=== PATIENT | male | born 1975 | race Two or more races ===

== ENCOUNTER 2022-10-20 16:24 | Emergency (ER) | payer MEDICAID, SELFPAY ==
[2022-10-20 16:33] VITALS: BP 123/84; PULSE 95; RESP 10; TEMP 36.7; O2SAT 92; BMI 25.7
--- NOTE | 2022-10-20 16:33 | ED.GENADULT ---
HPI - General Adult General Chief complaint: ETOH/Substance Use Stated complaint: OPIOID USE Time Seen by Provider: 10/20/22 17:02 Source: patient and EMS Mode of arrival: EMS Limitations: no limitations History of Present Illness HPI narrative: 46-year-old male presents with likely overdose. We suspect patient having said he snorted fentanyl. He has been given Narcan. Initially, patient was quite conversant offering no significant complaints. No suicidal homicidal ideation. Subsequently, patient became quite somnolent, respirations dropped to 9, oxygen saturation between 80 90% on room air snoring. History limited to mental status changes. Related Data Allergies Allergy/AdvReac Type Severity Reaction Status Date / Time No Known Allergies Allergy Verified 10/20/22 16:35 Review of Systems Review of Systems: Yes Unobtainable due to mental status Physical Exam ED Vital Signs: Vital Signs - 24 hr 10/20/22 16:33 Temperature 98.0 F Pulse Rate 95 Respiratory Rate 10 L Blood Pressure 123/84 Pulse Oximetry 92 Oxygen Delivery Method Room Air BMI result Body Mass Index 25.7 GEN: Well developed, no acute distress, intermittently alert followed by periods of slowed respirations and hypoxia HEENT: Normocephalic, atraumatic, normal external ears, nose appears normal, no oropharyngeal edema or exudates Eyes: Normal to appearance Neck: Supple, no lymphadenopathy Respiratory: Talks in complete sentences, no respiratory distress, clear to auscultation bilaterally Cardiovascular: Regular rate and rhythm, no murmurs rubs or gallops Abdomen: Soft, nontender, nondistended, no guarding, no rebound Back: No CVA tenderness Extremities: No clubbing cyanosis or edema Neurologic: No focal neurologic deficits Skin: No rash Course Course Course Narrative: This is an RME: Additional HPI, ROS, PE not included below will be deferred to primary provider. This is a 42-it[age]ks-male, with a history of substance abuse, presenting to the emergency department via EMS after snorting fentanyl. Patient with snoring respirations and triage. Patient has pinpoint pupils. Respirations 10rpm. Oxygen saturation 92% on room air. Patient is arousable however will bring patient back to the main emergency department for more observation Plan: Labs, UA Reevaluation(s) Reevaluation #1: patient given Narcn with minimal response. patient transfered to monitored bed. Time: 17:13 Reevaluation #2: Patient is apparent overdose. He will not consent to blood work. Will not give a urine sample he wishes to be discharged at this time. Well aware that his symptoms could recur. We counseled extensively about leaving too early. We will discharge in against medical advice. Time: 18:00 Medications Administered Discontinued Medications Generic Name Dose Route Start Last Admin Trade Name Cecilia PRN Reason Stop Dose Admin Naloxone HCl 4 mg 10/20/22 17:08 10/20/22 17:09 Naloxone Hcl Nasal 4 Mg [place] NOSTRILALT 10/20/22 17:09 4 mg ONCE ONE Administration Critical Care Time Critical Care Time Critical Care Time: Yes Total Critical Care Time: 35 Attestation: Due to a high probability of clinically significant, life threatening deterioration, the patient required my highest level of preparedness to intervene emergently and I personally spent this critical care time directly and personally managing the patient. This critical care time included obtaining a history; examining the patient; pulse oximetry; ordering and review of studies; arranging urgent treatment with development of a management plan; evaluation of patient's response to treatment; frequent reassessment; and, discussions with other providers. This critical care time was performed to assess and manage the high probability of imminent, life-threatening deterioration that could result in multi-organ failure. It was exclusive of separately billable procedures and treating other patients and teaching time. Discharge Plan Discharge Clinical Impression: Overdose Patient Disposition: Left Against Medical Advice Instructions: Naloxone (Into the nose), Adult Overdose (ED) Referrals: [facility] [place] [facility] [Provider Group] Print Language: Bermudian
[2022-10-20] MEDS: Naloxone HCl Nasal 4 MG SPRAY NOSTRILALT (17:09)
--- NOTE | 2022-10-20 18:06 | MHC.RECOVSUP ---
Attempted to meet with pt in ED10 who is here for MER[facility]. At this time pt is uninterested in any recovery supports and wants to DC.
[2022-10-20] MEDS: Naloxone HCl Nasal TAKE HOME 4 MG SPRAY 8 MG NOSTRILALT (18:15)
== END 2022-10-20 18:25 | disposition left against medical advice (07) ==
LOC: HO.ED 18:20
PROVIDERS: Emergency Provider Emergency Medicine
DX: T40.1X1A Poisoning by heroin, accidental (unintentional), initial encounter (principal); Y92.9 Unspecified place or not applicable
CPT/HCPCS: 51701; 99282; 99284

== ENCOUNTER 2022-11-27 09:20 | Emergency (ER) | payer OTHER, SELFPAY ==
[2022-11-27 09:32] VITALS: BP 150/88; PULSE 85; O2SAT 100
[2022-11-27 09:58] VITALS: BP 145/84; PULSE 84; RESP 16; TEMP 36.4; O2SAT 96; BMI 26.9
[2022-11-27 10:40] LABS: Anion Gap 17 (12-20); Blood Urea Nitrogen 8 mg/dL (9-16); Calcium 10.3 mg/dL (8.4-10.2); Carbon Dioxide 23 mmol/L (22-29); Chloride 103 mmol/L (96-108); Creatinine Clr Calc Pharmacy 80.9; Estimated Glomerular Filt Rate > 60; Glucose Random 79 mg/dL (60-115); Potassium 4.5 mmol/L (3.3-5.1); Sodium 138 mmol/L (135-145)
--- NOTE | 2022-11-27 11:44 | ED.WOUNDLAC ---
HPI - Wound/Laceration General Chief Complaint: Wound/Laceration Stated Complaint: L ANKLE WOUND,? 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 Patient reports having this wound for months after waking up with it one day. States that his wound was cured at one point however is unable to tell me where he was treated for this. States that the only medication he currently takes is a nerve pain medication prescribed by his nerve doctor . Does not recall the name of the medication. Denies history of diabetes. Denies IV drug use. Patient is a poor historian. Related Data Allergies Allergy/AdvReac Type Severity Reaction Status Date / Time No Known Allergies Allergy Verified 10/20/22 16:35 Review of Systems Review of Systems: Constitutional: No fever, chills, fatigue, night sweats, weight changes ENT/Mouth: No ear pain, hearing loss, nasal congestion, sinus pain, rhinorrhea, sore throat Eyes: No eye pain, swelling, redness, vision changes, discharge Cardio: No chest pain, palpitations, YO, orthopnea, peripheral edema Pulm: No SOB, cough, sputum, wheezing, dyspnea, hemoptysis GI: No nausea, vomiting, hematemesis, abdominal pain, diarrhea, constipation, hematochezia, melena : No irregular bleeding, dysuria, frequency, urgency, hesitancy, hematuria, flank pain, urinary flow changes, urinary incontinence or retention MSK: No back pain, neck pain, joint pain, myalgias Skin: No lesions, rashes, + Left foot wound Neuro: No weakness, numbness, paresthesias, LOC, dizziness, headache All other systems reviewed and are negative. [facility] Past Medical History Attestation statement: The following information was validated with the patient. Source: old records reviewed and nursing notes reviewed Social History Social History Smoked in Last 30 Days: Yes Use of substances other than those prescribed or required for medical reasons: Refusing to respond Advance Directives: Yes Advance Directives on File: Yes Advance Directives Date on File: 11/27/22 Physical Exam Vital Signs: Vital Signs: Last Vital Signs Temp 98.2 F 11/27/22 14:30 Pulse 76 11/27/22 14:30 Resp 17 11/27/22 14:30 BP 124/69 11/27/22 14:30 Pulse Ox 96 11/27/22 14:30 O2 Del Method Room Air 11/27/22 14:30 BMI result Body Mass Index 26.9 Vital signs stable Const: General: cooperative, no acute distress, alert and awake Orientation/consciousness: patient oriented x3 Limitations: no limitations HEENT: Head: Yes normal to inspection Ears: hearing grossly normal bilaterally General nose exam: Normal external nose present Eyes: General: appearance normal, both eyes and all related structures Pupils: Equal, round and reactive pupils present EOM: EOMs intact bilaterally Neck: Neck: Yes normal visual inspection and Yes no lymphadenopathy Resp: Effort & Inspection: normal respiratory effort Auscultation: clear to auscultation bilaterally Cardio: Rate: regular rate Rhythm: regular rhythm Heart sounds: S1 normal heart sound present and S2 normal heart sound present Peripheral pulses: Peripheral pulses 2+ throughout : General: Yes no CVA tenderness Back/Spine/Pelvis: Back: no CVA tenderness Skin: General skin exam: no rashes or lesions noted Neuro: General: patient oriented x3, gait normal and moves all extremities Cranial nerves: Yes CN's II-XII intact bilaterally and Yes Equal, round and reactive pupils present Extrem: Other: Refer to photos below. + DP/PT pulses 2+ bilaterally. Normal capillary refill b/l. General: Yes full ROM, Yes capillary refill normal, Yes normal gait and No calf tenderness Ankle/foot/toe images: 1. Course Course Course Narrative: 1403-- CBC without leukocytosis or anemia. Chemistry without acute electrolyte abnormalities requiring intervention. CRP/ ESR midly elevated. Awaiting xrays. > Case discussed with my attending physician, Dr. Golden. 4069-- Discussed case with Christiana from who, upon further investigation into the patient's case, discovered that the patient was admitted to [facility] for IV abx 2 mo ago and 1 mo ago, and discharge home with wound care f/u. > patient has longstanding history of schizophrenia (non med compliant), HTN, HDL, hepatitis-C, GERD and IVDU. > patient does not qualify for case management at this time. 1445-- on re-evaluation, patient does not have physical complaints. Discussed unremarkable lab and imaging results. There is no concern for osteomyelitis or any other infection at this time. His presentation is consistent with a chronic left foot ulcer that is currently in the healing stages. I told the patient that he needs to follow-up with outpatient wound care and a referral will be provided to him. He tells me that he does not even know why he came here and expresses frustration that someone called EMS to have him brought here for this. He is requesting that he call his brother to come pick him up. >> at this time patient's vital signs are stable and workup was unremarkable. I feel safe discharging the patient home. Discussed strict return precautions. Patient expresses understanding of disposition. All questions answered at this time. Stable for discharge. Medical Decision Making Medical Decision Making [facility] Narrative: 46 year old Marshallese speaking male with pmhx significant for polysubstance abuse who presents to the ED via EMS from [facility] with chronic wound to his left foot/ heel. VSS, patient is afebrile, normotensive, not tachycardic. He is nontoxic appearing, in NAD. 3cm circular ulceration surrounded by granulation tissue noted to the lateral aspect of the left heel just inferior to the lateral malleolus without surrounding erythema, fluctuance, or warmth. NV intact distally. Ambulating with steady gait. Clinical suspicion for chronic healing ulcer. Low suspicion for osteomyelitis vs gangrene vs necrotizing fasciitis vs arterial occlusion vs threat to limb. Plan at this time is to obtain labs, inflammatory markers, x-ray of the left foot knee ankle. Patient declining pain control at this time. Differential Diagnosis Differential Diagnoses: The differential diagnosis associated with the presentation includes As above. Admission/Observation Not indicated. Lab Data [facility] Lab Attestation statement: I reviewed the patient's lab results. As above. 11/27/22 10:07 11/27/22 10:07 Labs: Lab Results 11/27/22 11/27/22 11/27/22 Range/Units 10:07 12:25 12:26 WBC 10.3 (4.8-10.8) X10*3/uL RBC 5.03 (4.60-5.80) X10*6/uL Hgb 14.9 (14.0-18.0) g/dl Hct 45.5 (42.0-52.0) % MCV 90.5 (80.0-98.0) fL MCH 29.6 (27.0-33.0) pg MCHC 32.7 (31.0-36.0) g/dl RDW 15.2 (11.0-16.0) % Plt Count 245 (160-400) X10*3/uL MPV 9.4 (9.4-12.4) fL Immature Gran % (Auto) 0.3 (0.0-0.4) % Neut % (Auto) 72.0 (45-73) % Lymph % (Auto) 15.3 L (20-40) % [place] % (Auto) 10.0 (2-11) % Eos % (Auto) 1.6 (0-4) % Baso % (Auto) 0.8 (0-2) % Lymph # (Auto) 1.6 (1.2-4.9) X10*3/uL [place] # (Auto) 1.0 (0.1-1.2) X10*3/uL Eos # (Auto) 0.2 (0.0-0.4) X10*3/uL Baso # (Auto) 0.1 (0.0-0.2) X10*3/uL Abs Immat Gran (auto) 0.03 (0.00-0.03) X10*3/uL Absolute Neuts (auto) 7.4 (2.0-8.3) x10*3/uL Absolute Nucleated RBC 0.000 (0.0-0.012) X10*3/uL Nucleated RBC % (auto) 0.0 (0.0-0.2) /100WBC ESR 23 H (0-15) MM/HR Sodium 138 (135-145) mmol/L Potassium 4.5 (3.3-5.1) mmol/L Chloride 103 (96-108) mmol/L Carbon Dioxide 23 (22-29) mmol/L Anion Gap 17 (12-20) BUN 8 L (9-16) mg/dL Creatinine 0.99 (0.5-1.4) mg/dL Estim Creat Clear Calc 80.9 Estimated GFR > 60 Random Glucose 79 (60-115) mg/dL Calcium 10.3 H (8.4-10.2) mg/dL C-Reactive Protein 3.54 H (< or = 0.50) mg/dL Independent Interpretation I performed an independent interpretation of an: Plain X-Ray Interpretation: XR left foot/ ankle Radiology Impression Discussion of test interpretation with radiology: I have reviewed the radiologist's reading. Radiologist Impression: XR foot LT min 3V IMPRESSION: No evidence of osteomyelitis within the ankle or foot. There is a soft tissue wound/ulcer at the lateral hindfoot. Independent Historian Clinical information obtained from an independent historian. History obtained from or confirmed by: Spouse External Record Review External record reviewed: Inpatient record Tests considered The following testing was considered but not selected: I considered obtaining an MRI of the left foot/ ankle however patient's x-rays were negative for osteomyelitis and ESR <30 >> osteo unlikely and MRI not warranted. Prescription Management I considered prescription management with: Pain Medication Chronic Conditions Patient?s care impacted by: Hypertension Social Determinants Patient?s care significantly limited by Social Determinants of Health including: Inadequate housing, Problems related to employment and Other Social Determinant of Health Critical Care Time Critical Care Time Critical Care Time: No Discharge Plan Discharge Clinical Impression: Chronic foot ulcer Patient Disposition: Home, Self-Care Instructions: Chronic Wounds (ED) Additional Instructions: The x-ray of your left foot and ankle did not show evidence of bone infection. You have a healing wound to your left heel. Please follow-up with primary care provider. A referral for the Wound Clinic has been provided to you. You may call them to schedule an appointment for wound care. CALL THEM TO MAKE AN APPOINTMENT. THEY WILL NOT CALL YOU. Return to the emergency department if her symptoms persist or worsen or if you develop a fever over 100.4?. Continue all your home medications as prescribed. In the case of an emergency, call 911. Referrals: [facility] [Provider Group] [facility] [Provider Group] Physician,Radha J [Primary Care Provider] - Interventions: ED Discharge Assessment Last Done: 11/27/22 15:09 Discharge Date/Time: 11/27/22 15:09
[2022-11-27 12:00] VITALS: BP 119/76; PULSE 54; RESP 16; TEMP 36.8; O2SAT 97
[2022-11-27 14:30] VITALS: BP 124/69; PULSE 76; RESP 17; TEMP 36.8; O2SAT 96
== END 2022-11-27 15:09 | disposition home or self-care (01) ==
PROVIDERS: Emergency Provider Emergency Medicine; PCP Psychiatry & Neurology Neurology
DX: L97.329 Non-pressure chronic ulcer of left ankle with unspecified severity (principal); M79.672 Pain in left foot; Z79.899 Other long term (current) drug therapy
CPT/HCPCS: 36415; 73610; 73630; 80048; 85025; 85652; 86140; 99283; 99284

== ENCOUNTER 2023-05-04 15:27 | Emergency (ER) | payer OTHER, SELFPAY ==
[2023-05-04 15:55] VITALS: BP 151/88; PULSE 82; O2SAT 94
[2023-05-04 16:06] VITALS: BP 156/84; PULSE 76; RESP 16; TEMP 37; O2SAT 98
--- NOTE | 2023-05-04 16:20 | ED.GENADULT ---
HPI - General Adult General Chief complaint: Psychiatric Symptoms Stated complaint: itchy after smoking something hard Time Seen by Provider: 05/04/23 15:58 Source: patient and EMS Mode of arrival: EMS Limitations: no limitations History of Present Illness HPI narrative: 47 yo male here after smoking PCP. No SI/HI. No physical complaints. Related Data Allergies Allergy/AdvReac Type Severity Reaction Status Date / Time No Known Allergies Allergy Verified 10/20/22 16:35 Review of Systems Review of Systems: Yes all other systems are reviewed and are negative Constitutional: Constitutional: Reports no additional constitutional complaints, Denies body ache(s), Denies chills, Denies fever(s), Denies headache(s) and Denies weakness Eyes: Eyes: Reports no additional eye complaints and Denies change in vision ENT: Reports system reviewed and no additional complaints, except as documented, Denies dizziness, Denies headache(s), Denies nasal congestion, Denies nasal discharge and Denies neck pain Cardiovascular: Cardiovascular: Reports no additional cardiovascular complaints, Denies chest pain, Denies leg edema and Denies dyspnea Respiratory: Respiratory: Reports no additional respiratory complaints, Denies cough and Denies dyspnea Gastrointestinal: Gastrointestinal: Reports no additional gastrointestinal complaints, Denies abdominal pain, Denies diarrhea, Denies nausea and Denies vomiting Genitourinary: Genitourinary: Denies urinary incontinence Musculoskeletal: Musculoskeletal: Reports no additional musculoskeletal complaints, Denies back pain, Denies arthralgias, Denies joint swelling, Denies neck pain, Denies numbness and Denies tingling Integumentary/Breasts: Skin/Breast: Reports system reviewed and no additional complaints, except as docu and Denies rash Neurologic: Reports system reviewed and no additional complaints, except as documented, Denies Abnormal speech present, Denies dizziness, Denies headache(s), Denies numbness, Denies tingling and Denies weakness [facility] Past Medical History Attestation statement: The following information was validated with the patient. Source: old records reviewed and nursing notes reviewed Social History Social History Use of substances other than those prescribed or required for medical reasons: Yes Substance Use Type: Crack/Cocaine Advance Directives: Yes Advance Directives on File: Yes Advance Directives Date on File: 11/27/22 Physical Exam ED Vital Signs: Vital Signs - 24 hr 05/04/23 15:56 05/04/23 16:06 05/04/23 19:44 Temperature 98.6 F 99.3 F Pulse Rate 76 80 Respiratory Rate 16 20 Blood Pressure 156/84 H 160/100 H Pulse Oximetry 98 93 Oxygen Delivery Method Room Air Room Air Room Air BMI result Body Mass Index 0.0 Const General: cooperative, healthy appearing, comfortable and no acute distress Orientation/consciousness: patient oriented x3 Limitations: no limitations HENMT Head: Yes normal to inspection Ears: hearing grossly normal bilaterally General nose exam: Normal external nose present Face and sinus: Yes normal facial exam Mouth: Normal oral and palatal mucosa present Throat: Yes posterior oropharynx normal Eyes General: appearance normal, both eyes and all related structures Pupils: Equal, round and reactive pupils present Neck Neck: Yes normal visual inspection Chest Chest palpation & inspection: normal inspection of the chest Resp Effort & Inspection: normal respiratory effort Auscultation: clear to auscultation bilaterally Cardio Rate: regular rate Rhythm: regular rhythm Peripheral pulses: Peripheral pulses 2+ throughout GI Inspection: Yes normal to inspection Palpation (GI): Soft to palpation and nontender Auscultation: normal bowel sounds Back/Spine/Pelvis Thoracic/Lumbar Spine: thoracic and lumbar spine normal to inspection Skin General skin exam: no rashes or lesions noted Neuro General: patient oriented x3, no focal motor deficits and normal sensation to monofilament Cranial nerves: Yes Equal, round and reactive pupils present Cognition (Neuro): normal cognition Speech: No Abnormal speech present Gait exam (Neuro): Normal gait present Motor exam (neuro): 5/5 motor strength present throughout Extrem General: Yes normal to inspection Course Course Course Narrative: 0100-Placed in physician observation as patient needs sober re-eval prior to discharge home Medical Decision Making Medical Decision Making [facility] Narrative: 47 yo male here after smoking PCP. No SI/HI. No physical complaints. No concern for acute ingestion or trauma A&Ox4. Walks with steady gait Differential Diagnosis Differential Diagnoses: The differential diagnosis associated with the presentation includes polybsubstance use Admission/Observation Consideration of admission/observation: Escalation of care including admission/observation considered Independent Historian Clinical information obtained from an independent historian. History obtained from or confirmed by: EMS Tests considered The following testing was considered but not selected: no concern for trauma needing CT imaging Discharge Plan Discharge Clinical Impression: Phencyclidine (PCP) use disorder, mild Patient Disposition: Still a Patient Instructions: Polysubstance Abuse (ED) Interventions: Porter-Suicide Risk Severity Scale Last Done: 05/04/23 16:08
[2023-05-04 19:44] VITALS: BP 160/100; PULSE 80; RESP 20; TEMP 37.4; O2SAT 93
--- NOTE | 2023-05-04 19:44 | PC.NURSE ---
pt resting in stretcher, respirations even and unlabored, pt currently calm and cooperative. vss at this time, pt in [facility] [facility] attire.
[2023-05-05] VITALS: BP 119/59; PULSE 92; RESP 20; TEMP 37.1; O2SAT 95
[2023-05-05 03:59] VITALS: BP 117/77; PULSE 69; RESP 13; TEMP 36.6; O2SAT 97
--- NOTE | 2023-05-05 04:05 | PC.NURSE ---
pt alert and ambulatory at this time. 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 pt alert and drinking water. pt ambulated with steady gait to decon.
[2023-05-05 04:07] VITALS: BP 117/77; PULSE 69; RESP 13; TEMP 36.6; O2SAT 97
== END 2023-05-05 04:09 | disposition still patient (30) ==
PROVIDERS: Emergency Provider Internal Medicine
DX: F16.10 Hallucinogen abuse, uncomplicated (principal)
CPT/HCPCS: 99284; 99285

== ENCOUNTER 2023-07-18 04:05 | Emergency (ER) | payer OTHER, SELFPAY ==
[2023-07-18] VITALS (7 sets, daily range): BP systolic 104–145; BP diastolic 53–72; PULSE 47–65; RESP 12–23; TEMP 36.5–37.2; O2SAT 94–99; BMI 20.4
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
--- NOTE | ~2023-07-18 | XR_ITS ---
Indication: Pain EXAMINATION: Right shoulder, right ankle. Limited 2 views the right shoulder demonstrate increased distance in the AC joint. This could represent an element of AC joint separation or the patient's baseline. Correlation is recommended clinically. No fracture or reno dislocation is seen limited 2 views. Some spurring of the acromion is noted and some possible degenerative change of the glenohumeral articulation which is poorly evaluated on this limited study. 3 views of the right ankle does not demonstrate evidence for an acute fracture or dislocation. Some degenerative changes seen medially and laterally. Spurring in the posterior calcaneus is noted. XR/XR shoulder RT min 2V IMPRESSION: Correlation recommended for the AC joint.. Otherwise no acute finding. Some degenerative changes are noted.
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
--- NOTE | ~2023-07-18 | XR_ITS ---
Indication: Pain EXAMINATION: Right shoulder, right ankle. Limited 2 views the right shoulder demonstrate increased distance in the AC joint. This could represent an element of AC joint separation or the patient's baseline. Correlation is recommended clinically. No fracture or reno dislocation is seen limited 2 views. Some spurring of the acromion is noted and some possible degenerative change of the glenohumeral articulation which is poorly evaluated on this limited study. 3 views of the right ankle does not demonstrate evidence for an acute fracture or dislocation. Some degenerative changes seen medially and laterally. Spurring in the posterior calcaneus is noted. XR/XR ankle RT 2V IMPRESSION: Correlation recommended for the AC joint.. Otherwise no acute finding. Some degenerative changes are noted.
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
[2023-07-18 08:32] LABS: MANUAL DIFF FLAG NO
[2023-07-18 08:36] LABS: Basophils Absolute Auto 0.1 X10*3/uL (0.0-0.2); Basophils Percent Auto 0.4 % (0-2); Eosinophils Absolute Auto 0.1 X10*3/uL (0.0-0.4); Eosinophils Percent Auto 0.7 % (0-4); Hematocrit 41.2 % (42.0-52.0); Hemoglobin 13.6 g/dl (14.0-18.0); Imm Gran Abs Auto 0.06 X10*3/uL (0.00-0.03); Imm Gran Pct Auto 0.4 % (0.0-0.4); Lymphocytes Absolute Auto 2.4 X10*3/uL (1.2-4.9); Lymphocytes Percent Auto 14.1 % (20-40); Mean Corpuscular Hemoglobin 29.1 pg (27.0-33.0); Mean Platelet Volume 9.9 fL (9.4-12.4); Monocytes Absolute Auto 1.4 X10*3/uL (0.1-1.2); Monocytes Percent Auto 8.5 % (2-11); Neutrophils Absolute Auto 12.8 x10*3/uL (2.0-8.3); Neutrophils Percent Auto 75.9 % (45-73); Platelet Count 248 X10*3/uL (160-400); Red Blood Count 4.68 X10*6/uL (4.60-5.80); Red Cell Distribution Width 14.6 % (11.0-16.0); White Blood Count 16.8 X10*3/uL (4.8-10.8)
[2023-07-18 08:50] LABS: Prothrombin Time 12.4 SEC (11.1-13.3)
[2023-07-18 09:11] LABS: Alanine Aminotransferase 17 U/L (0-40); Albumin Level 4.3 g/dL (3.5-5.0); Alkaline Phosphatase 55 U/L (39-117); Anion Gap 12 (12-20); Aspartate Amino Transferase 17 U/L (5-37); Bilirubin Direct 0.2 mg/dL (0.0-0.5); Bilirubin Total 0.4 mg/dL (0.0-1.0); Blood Urea Nitrogen 20 mg/dL (9-16); Calcium 9.4 mg/dL (8.4-10.2); Carbon Dioxide 22 mmol/L (22-29); Chloride 112 mmol/L (96-108); Creatinine Clr Calc Pharmacy 101.8; Estimated Glomerular Filt Rate > 60; Glucose Random 102 mg/dL (60-115); Lipase 52 U/L (8-78); Potassium 3.7 mmol/L (3.3-5.1); Sodium 142 mmol/L (135-145); Total Protein 7.6 g/dL (6.5-8.0)
--- NOTE | 2023-07-18 11:50 | PC.NURSE ---
Assumed care of this patient @ 1100, patient sleeping soundly in bed, no complaints at this time, waiting CT fry scan results.
[2023-07-18 13:27] LABS: Amphetamine Screen Urine Not Detected (Not Detect); Barbiturates, Urine Not Detected (Not Detect); Benzodiazepines Screen Urine Not Detected (Not Detect); Buprenorphine Scr Not Detected (Not Detect); Cannabinoid Screen Urine POSITIVE (Not Detect); Cocaine Screen Urine POSITIVE (Not Detect); Fentanyl, urine POSITIVE (Not Detect); Methadone Screen, Urine Not Detected (Not Detect); Opiate Screen Urine Not Detected (Not Detect); Oxycodone Screen Urine Not Detected (Not Detect); Phencyclidine Screen Urine Not Detected (Not Detect)
--- NOTE | 2023-07-18 14:18 | PC.NURSE ---
Addendum entered by Radhika Diaz RN 07/18/23 14:28: Patient explained via production generalist to not lie on injured shoulder, to keep arm in sling, patient found sleeping on R side. Original Note: Patient sling applied with production generalist at bedside, patient requested to eat, given food, ate and immediately put blanket over head to go back to sleep.
--- NOTE | 2023-07-18 15:10 | PC.NURSE ---
NARCAN GIVEN DURING D/C as take home med
== END 2023-07-18 15:12 | disposition home or self-care (01) ==
PROVIDERS: Emergency Provider Emergency Medicine
DX: F19.10 Other psychoactive substance abuse, uncomplicated (principal); S49.91XA Unspecified injury of right shoulder and upper arm, initial encounter; S30.811A Abrasion of abdominal wall, initial encounter; S40.211A Abrasion of right shoulder, initial encounter; S90.811A Abrasion, right foot, initial encounter; V03.10XA Pedestrian on foot injured in collision with car, pick-up truck or van in traffic accident, initial encounter; Y93.01 Activity, walking, marching and hiking; Y92.414 Local residential or business street as the place of occurrence of the external cause; Y99.9 Unspecified external cause status
CPT/HCPCS: 36415; 70450; 71260; 72125; 73030; 73600; 73630; 74177; 80048; 80076; 80307; 83690; 83735; 85025; 85610; 99285